=== PATIENT | male | born 1985 | race Caucasian/White ===

== ENCOUNTER 2016-11-02 11:51 | Emergency (ER) | payer SELFPAY ==
[2016-11-02 12:12] VITALS: BP 125/60; PULSE 76; TEMP 97.6
[2016-11-02 12:13] VITALS: BMI 23.6
--- NOTE | 2016-11-02 12:56 | EDPRACDOC ---
- General Information Chief Complaint: Flu-Like Symptoms Stated Complaint: COUGH & CONGESTION WEAKNESS Time Seen by Provider: 11/02/16 12:18 Information Source: Patient Mode Of Arrival: Car Home Medications: Home Medications Ibuprofen 600 mg PO TID #20 tablet 11/02/16 Prednisone [Deltasone, Orasone] 2 tabs PO DAILY #20 tab 11/02/16 Promethazine Dextromethorphan [Phenergan DM] 5 ml PO Q4H PRN #120 ml 11/02/16 Allergies/Adverse Reactions: Allergies Allergy/AdvReac Type Severity Reaction Status Date / Time acetaminophen [From Ultracet] Allergy Unknown Rash-Genera Verified 11/02/16 12: 22 lized Penicillins Allergy Unknown Rash-Genera Verified 11/02/16 12:22 lized tramadol HCl [From Ultram] Allergy Unknown Rash-Genera Verified 11/02/16 12:22 lized - History of Present Illness Symptoms Started: 3 days HPI: PT PRESENTS TODAY WITH COUGH/CONGESTION, GENERAL MALAISE/FATIGUE X 4-5 DAYS. 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 SMOKER, PACK/DAY. NO PMH/MEDS. NO APPARENT DISTRESS. STATES HIS CHESTWALL PAIN IS "15/10". NO OTHER COMPLAINTS. Symptoms: Reports: Cough, Sore Throat, Myalgia Recent Medications: Reports: None Relevant History Of: Reports: None Shortness of Breath: None Cough Frequency: Intermittent Cough Description: Reports: Productive, Strong, Congested Rhinorrhea: Reports: None Ear Symptoms: Reports: None Associated Signs and Symptoms: Reports: Cough, Myalgia ED Past Medical History - History Reviewed Yes Nurses notes reviewed and agree except as marked - Patient Medical History Psychological History: Denies: Depression Surgical History: Reports: Cholecystectomy - Social Medical History Smoking Status: Heavy tobacco smoker (5 or more cigarettes/day or daily pipe/ cigar) EDM Review of Systems - Review of Systems ROS Negative Except as Marked: Yes All systems reviewed and were negative except as marked Constitutional: Fatigue Eyes: No Symptoms Reported Ears: No Symptoms Reported Throat: Pain Nose: Congestion Respiratory: Cough Cardiovascular: No Symptoms Reported Gastrointestinal: No Symptoms Reported Neurological: No Symptoms Reported Musculoskeletal: Chestwall Integumentary: No Symptoms Reported - Physical Exam Constitutional: Alert (Awake), No apparent distress Oriented to: Time, Person, Place Last recorded Vital Signs: Last Vital Signs Temp 97.6 F 11/02/16 12:12 Pulse 76 11/02/16 12:12 Resp 20 11/02/16 12:22 BP 125/60 11/02/16 12:12 Pulse Ox 98 11/02/16 12:12 Oxygen Pulse Oxygen Saturation 98 O2 Device Oxygen Flow Rate Fraction of Inspired Oxygen ( FIO2) - HEENT Head: Normal Eye Exam: Normal Oropharynx: Normal Tympanic Membrane: Normal ENT EAC: Normal Nose: Congestion Neck: Normal, Denies Pain, Midline - Respiratory/Cardiovascular Respiratory: Normal - CTA Cardiovascular: Normal - GI Palpation: Normal Tenderness: Non tender - Musculoskeletal Back: Normal Extremities: Normal - Integumentary Skin: Normal Lymphatics: Normal - Neurologic Cerebellar: Normal Mood Description: Normal Thought: Coherent Perception: Normal Decision Time to Discharge: 13:15 - Departure Disposition: Home Condition: Good Final Diagnosis: Acute bronchitis Instructions: Acute Bronchitis (ED) Education/Counseling Given To: Patient Education/Counseling Given Regarding: Diagnosis, Treatment, Follow Up Referrals: None,No Provider [Primary Care Provider] - One Week [facility] [NonStaff] - One Week Prescriptions: Ibuprofen 600 mg PO TID #20 tablet Prednisone [Deltasone, Orasone] 2 tabs PO DAILY #20 tab Promethazine Dextromethorphan [Phenergan DM] 5 ml PO Q4H PRN #120 ml PRN Reason: Cough Additional Instructions: PLEASE STOP SMOKING. THIS WILL DELAY YOUR RECOVERY. FOLLOW UP WITH PCP IN 2-3 DAYS IF NEEDED.
--- NOTE | 2016-11-02 13:08 | DIRPT ---
CLINICAL DATA: Cough and chest congestion for 3 days, generalized body aches EXAM: CHEST 2 VIEW COMPARISON: 09/19/2010 FINDINGS: Normal heart size, mediastinal contours, and pulmonary vascularity. Chronic central peribronchial thickening and minimal hyperinflation. Lungs clear. No pleural effusion or pneumothorax. Question calcified granuloma LEFT infrahilar. No acute osseous abnormalities. IMPRESSION: Chronic bronchitic changes without infiltrate. Electronically Signed By: Ever Franklin M.D. On: 11/02/2016 13:06
== END 2016-11-02 13:34 | disposition home or self-care (01) ==
LOC: EDMC 11:51
DX: J20.9 Acute bronchitis, unspecified (principal)
CPT/HCPCS: 71020; 99282